=== PATIENT | male | born 1980 | race Two or more races ===

== ENCOUNTER 2017-01-06 04:34 | Emergency (ER) | payer OTHER ==
[~2017-01-06] VITALS: Ht 175.3 cm; Wt 68.1 kg
[2017-01-06] MEDS ORDERED: NORCO 5/3251 TABLET PO (06:14)
[2017-01-06] MEDS ORDERED: ULTRAM50 MG PO (06:32)
[2017-01-06 12:02] VITALS: BP 152/87
== END 2017-01-06 12:04 | disposition home or self-care (01) ==
LOC: EME 04:34 → EDBD 04:40 → EME 04:40
PROC: 0HQ1XZZ Repair Face Skin, External Approach (ICD-10-PCS; principal; 2017-01-06)
DX: S01.81XA Laceration without foreign body of other part of head, initial encounter (principal); S09.90XA Unspecified injury of head, initial encounter; M25.512 Pain in left shoulder; V49.9XXA Car occupant (driver) (passenger) injured in unspecified traffic accident, initial encounter; I10 Essential (primary) hypertension; I49.3 Ventricular premature depolarization; F17.200 Nicotine dependence, unspecified, uncomplicated
CPT/HCPCS: 70450; 71010; 72125; 73030; 99281; 99284